=== PATIENT | female | born 1945 | race Caucasian/White ===

== ENCOUNTER 2024-11-02 20:17 | Observation (INO) | payer MEDICARE, SELFPAY ==
--- NOTE | ~2024-11-02 | XR_ITS ---
EXAMINATION: XR abdomen/kub 1V DATE: 11/06/2024 13:27 INDICATION: Abdominal discomfort TECHNIQUE: A supine view of the abdomen on 2 radiographs was obtained. COMPARISON: None. FINDINGS: Multiple gas-filled but nondilated loops of bowel throughout the abdomen and pelvis in a nonspecific nonobstructive bowel gas pattern. Mild linear discoid atelectasis at the bilateral lung bases. Lumbar dextroscoliosis with severe spondylosis. L2 compression fracture. IMPRESSION: 1. Nonspecific nonobstructive bowel gas pattern. Reviewed, dictated and finalized at location A. RT FREIGHT MANAGER
--- NOTE | ~2024-11-02 | CT_ITS ---
EXAMINATION: CT brain wo con DATE: 11/02/2024 23:47 INDICATION: Syncope. TECHNIQUE: Computed tomography (CT) of the head was performed without intravenous contrast. The mA wa s adjusted according to patient size. Iterative reconstruction technique was employed. The dose-lengt h product was 529.67 mGy-cm. COMPARISON: None FINDINGS: There are scattered areas of low attenuation in the cerebral white matter. There is no intr acranial hemorrhage, acute infarction, or abnormal intracranial mass lesion. The ventricles are js l in size. There is mild mucosal thickening in the paranasal sinuses. The mastoid air cells are js l. IMPRESSION: 1. Moderate nonspecific cerebral white matter disease, which likely represents chronic small vessel i schemic disease. Reviewed, dictated and finalized at location A. ITION THERAPIST IMPRESSION: 1. Moderate nonspecific cerebral white matter disease, which likely represents chronic small vessel ischemic disease.
--- NOTE | ~2024-11-02 | XR_ITS ---
EXAMINATION: XR chest 1V portable DATE: 11/02/2024 22:54 INDICATION: Syncope. TECHNIQUE: A single frontal view of the chest was obtained. COMPARISON: Chest 2 views 03/22/2009 FINDINGS: There is no pneumonia, pleural effusion, or pneumothorax. The heart size is normal. There i s an old healed fracture of right fourth rib. IMPRESSION: 1. No acute cardiopulmonary disease. Reviewed, dictated and finalized at location A. ING PROCESS WORKER
[2024-11-02 20:32] VITALS: BP 104/55; PULSE 60; RESP 17; TEMP 36.5; O2SAT 94
--- NOTE | 2024-11-02 20:34 | ECG_ITS ---
Test Date: 2024-11-02 20:46:05 Measurements Intervals [place] Rate: 56 P: 85 SC: 335 QRS: 17 QRSD: 82 T: 29 QT: 437 QTc: 422 Interpretive Statements SINUS BRADYCARDIA NONSPECIFIC T-WAVE ABNORMALITY ABNORMAL ECG Electronically Signed On 11-03-2024 08:40:22 HOUSE BUILDER by Salazar Irving M.D.
[2024-11-02 22:32] VITALS: BP 114/73; PULSE 64; RESP 14; O2SAT 100
[2024-11-02 22:34] VITALS: BP 109/81; BP 122/69; BP 130/67; PULSE 68; PULSE 69; PULSE 73; RESP 16; RESP 20; TEMP 36.3; O2SAT 96; O2SAT 98; O2SAT 99
[2024-11-02 22:46] VITALS: BP 113/77; PULSE 64; RESP 20; O2SAT 97
[2024-11-02 22:55] LABS: Basophils Percent Auto 0.3 % (0.2-1.2); Eosinophils Percent Auto 0.2 % (0-4.4); Hematocrit 40.9 % (37.0-47.0); Hemoglobin 13.3 g/dL (12.0-15.0); Immature Granulocyte Absolute 0.08 K/mm3 (0.00-0.031); Immature Granulocyte Percent A 0.6 % (0-0.5); Lymphocytes Absolute Auto 0.78 K/mm3 (0.9-3.2); Mean Corpuscular HGB Conc 32.5 g/dl (32-36); Mean Corpuscular Hemoglobin 29.1 pg (26-34); Mean Corpuscular Volume 89.5 fl (80-100); Mean Platelet Volume 9.2 fl (7.4-10.4); Monocytes Absolute Auto 0.8 K/mm3 (0.1-0.6); Neutrophils Absolute Auto 11.4 K/mm3 (1.3-6.7); Neutrophils Percent Auto 86.9 % (45.5-73.1); Platelet Count Result 306 k/mm3 (150-375); Red Blood Count 4.57 M/mm3 (4.2-5.4); Red Cell Distribution Width 15.7 % (11.5-14.5); White Blood Count 13.1 K/mm3 (4.5-10.0)
[2024-11-02 23:01] VITALS: BP 120/47; PULSE 63; RESP 16; O2SAT 97
--- NOTE | 2024-11-02 23:22 | ED.GENADULT ---
HPI - General Adult General Chief complaint: Syncope Stated complaint: syncope Time Seen by Provider: 11/02/24 22:46 History of Present Illness HPI narrative: Patient 79-year-old female who presents emergency department with chief complaint of syncopal episode. Per the family patient was at the intermediate sitting down states that she needed to go the bathroom she then became very ashen reports that her face scratched up her eyes rolled back in her head the patient has history of dementia and is at baseline confused the family reports that currently she is at her baseline. Related Data Home Medications ?Medication ?Instructions ?Recorded ?Confirmed ?Last Taken ?Type No Home Medications 08/17/24 09/07/24 Unknown History Allergies Allergy/AdvReac Type Severity Reaction Status Date / Time codeine Allergy Unknown Verified 09/09/11 12:55 Review of Systems Review of Systems: A 10 system review of systems was completed on the patient and is negative except for what is stated in the HPI. Nursing and ancillary documentation was reviewed. [facility] Family History Family History Sibling Family history of diabetes mellitus in first degree relative Social History Social History Smoking status: Former smoker Alcohol intake: current Exam Narrative: GENERAL: Well-appearing, well-nourished, and in no acute distress. HEAD: Normocephalic, atraumatic. EYES: PERRLA and EOMI. ENT: Nares clear, no rhinorrhea or epistaxis. Mucous membranes moist. NECK: Supple. CHEST: Clear to auscultation. No respiratory distress. HEART: Regular rate and rhythm. No murmur heard. Normal peripheral pulses. ABDOMEN: Soft, nontender, nondistended, normal active bowel sounds. EXTREMITIES: Normal range of motion. No edema. SKIN: Warm, dry, no rash. NEURO: No focal deficits. Alert and oriented to baseline, pleasantly confused. PSYCH: Normal mood and affect. Course Vital Signs Vital signs: Vital Signs Temperature 36.5 C 11/02/24 20:32 Pulse Rate 60 11/02/24 20:32 Respiratory Rate 17 11/02/24 20:32 Blood Pressure 104/55 L 11/02/24 20:32 Pulse Oximetry 94 11/02/24 20:32 Oxygen Delivery Room Air 11/02/24 20:32 Temperature 36.5 C 11/02/24 20:32 Pulse Rate 63 11/02/24 23:01 Respiratory Rate 16 11/02/24 23:01 Blood Pressure 120/47 L 11/02/24 23:01 Pulse Oximetry 97 11/02/24 23:01 Oxygen Delivery Room Air 11/02/24 20:32 Medical Decision Making MDM Narrative Medical decision making narrative: Differential diagnosis includes dysrhythmia, electrolyte abnormality, dehydration, UTI, COVID, flu, RSV, pneumonia Chest x-ray showed no focal infiltrate CT head showed no acute abnormality EKG showed no dysrhythmia the patient has been observed on the monitor and so far has had no dysrhythmias in the emergency department. There was an episode that had artifact that was not congruent with pulse ox. The case was discussed with the hospitalist the patient will be admitted for observation. Vital Signs Vital Signs: Vital Signs Temperature 36.5 C 11/02/24 20:32 Pulse Rate 60 11/02/24 20:32 Respiratory Rate 17 11/02/24 20:32 Blood Pressure 104/55 L 11/02/24 20:32 Pulse Oximetry 94 11/02/24 20:32 Oxygen Delivery Room Air 11/02/24 20:32 Temperature 36.5 C 11/02/24 20:32 Pulse Rate 63 11/02/24 23:01 Respiratory Rate 16 11/02/24 23:01 Blood Pressure 120/47 L 11/02/24 23:01 Pulse Oximetry 97 11/02/24 23:01 Oxygen Delivery Room Air 11/02/24 20:32 Lab Data 11/02/24 22:50 11/03/24 00:03 Labs: Lab Results 11/02/24 11/03/24 Range/Units 22:50 00:03 WBC 13.1 H (4.5-10.0) K/mm3 RBC 4.57 (4.2-5.4) M/mm3 Hgb 13.3 (12.0-15.0) g/dL Hct 40.9 (37.0-47.0) % MCV 89.5 (80-100) fl MCH 29.1 (26-34) pg MCHC 32.5 (32-36) g/dl RDW 15.7 H (11.5-14.5) % Plt Count 306 (150-375) k/mm3 MPV 9.2 (7.4-10.4) fl Immature Gran % (Auto) 0.6 H (0-0.5) % Neut % (Auto) 86.9 H (45.5-73.1) % Lymph % (Auto) 6.0 L (18.3-44.2) % Leake % (Auto) 6.0 (2.6-8.5) % Eos % (Auto) 0.2 (0-4.4) % Baso % (Auto) 0.3 (0.2-1.2) % Lymph # (Auto) 0.78 L (0.9-3.2) K/mm3 Leake # (Auto) 0.8 H (0.1-0.6) K/mm3 Eos # (Auto) 0.0 (0-0.3) K/mm3 Baso # (Auto) 0.0 (0.0-0.1) K/mm3 Abs Immat Gran (auto) 0.08 H (0.00-0.031) K/mm3 Absolute Neuts (auto) 11.4 H (1.3-6.7) K/mm3 Absolute Nucleated RBC 0.000 (0.0-0.012) K/mm3 Nucleated RBC % 0.0 (0.0-0.2) % PT 13.9 (11.1-14.7) Seconds INR 1.0 APTT 26.8 (22.3-36.8) Seconds Sodium 136 L (137-145) mmol/L Potassium 4.1 (3.4-5.0) mmol/L Chloride 106 (98-107) mmol/L Carbon Dioxide 27 (22-30) mmol/L Anion Gap 3 L (4-12) mmol/L BUN 15 (7-17) mg/dL Creatinine 0.80 (0.7-1.0) mg/dL Estim Creat Clear Calc Not Reportable Estimated GFR > 60 (59 - ) Glucose 123 H (65-110) mg/dL Lactic Acid 1.1 (0.7-2.0) mmol/L Calcium 9.5 (8.4-10.2) mg/dL Magnesium 2.3 (1.6-2.3) mg/dL Total Bilirubin 0.5 (0.2-1.3) mg/dL AST 28 (14-36) U/L ALT 15 (6-35) U/L Alkaline Phosphatase 98 (38-126) U/L Troponin I < 0.012 (0.000-0.034) ng/mL NT-Pro-B Natriuret Pep 46 (19.9-100) pg/mL Total Protein 8.0 (6.3-8.2) g/dL Albumin 4.1 (3.5-5.1) g/dL Procalcitonin 0.0 ng/mL Influenza A (RT-PCR) Negative (Negative) Influenza B (RT-PCR) Negative (Negative) RSV (RT-PCR) Negative (Negative) SARS-CoV-2 RNA (RT-PCR) Negative (Negative) Discharge Plan Discharge Clinical Impression: Syncope Patient Disposition: Still a Patient Condition: Stable Patient Language: Luxembourgish Prescriptions: No Action No Home Medications Follow-up/Referrals: PHYSICIAN NOT ON STAFF,NONSTAFF [Primary Care Provider] - Time of Disposition: 01:37
[2024-11-03] VITALS (8 sets, daily range): BP systolic 118–135; BP diastolic 46–76; PULSE 64–73; RESP 12–20; TEMP 36.5–36.7; O2SAT 96–100; BMI 27.3
--- NOTE | 2024-11-03 | ECHO_ITS ---
Patient Info Name: Thalia Hager Age: 79 years : 1945 Gender: Female Ht: 62 in Wt: 149 lbs BSA: 1.74 m2 HR: 67 bpm BP: 134 / 58 mmHg Technical Quality: Fair Exam Date: 11/03/2024 11:39 AM Exam Location: Echo Lab Patient Status: Inpatient Admit Date: 11/03/2024 Staff Ordering Physician: Amparo Burton Brim Cutter: Rory Momin RDCS Attending Provider: Amparo Burton Referring Physician: Micheal SALCIDO; Exam Type: CA echo doppler color flow Study Info Indications R55 - Syncope and collapse Complete two-dimensional, color flow and Doppler transthoracic echocardiogram is performed. Summary 1. Complete two-dimensional, color flow and Doppler transthoracic echocardiogram is performed. 2. The left ventricle is normal in size and systolic function. The left ventricular ejection fraction is visually estimated to be 60-65%. 3. The right ventricle is normal in size and systolic function. Left Ventricle The left ventricle is normal in size and systolic function. The left ventricular ejection fraction is visually estimated to be 60-65%. Right Ventricle The right ventricle is normal in size and systolic function. Left Atria The left atrium is normal size. Atrial Septum There appears to be lipomatous hypertrophy of the atrial septum. Aortic Valve The aortic valve is trileaflet and opens well. There is no aortic regurgitation. Pulmonic Valve The pulmonic valve is grossly normal. There is no color Doppler evidence of pulmonic valve regurgitation this study. Mitral Valve The mitral valve is normal. Tricuspid Valve The tricuspid valve is normal. There is trace tricuspid regurgitation. Pericardium/Pleural Pericardium is normal in appearance with no evidence for significant pericardial effusion. Inferior Vena Cava Normal inferior vena cava with >50% collapse upon inspiration consistent with normal right atrial pressure, 3 mmHg. Aorta The aortic root at the level of the sinus of Valsalva measures 2.7cm in diameter. Left Ventricular Outflow Tract Name Value Normal LVOT Doppler LVOT Peak Gradient 6 mmHg LVOT Mean Gradient 3 mmHg LVOT VTI 25 cm LVOT VTI/AV VTI Ratio 0.8 Pulmonic Valve Name Value Normal PV Doppler PV Peak Gradient 4 mmHg Mitral Valve Name Value Normal MV Doppler MV Decel Collier 460 cm/s2 MV PHT 52 ms MV Area (PHT) 4.2 cm2 4.0-5.0 MV Diastolic Function MV E Peak Velocity 83 cm/s MV A Peak Velocity 99 cm/s MV E/A 0.8 MV Decel Time 180 ms Tricuspid Valve Name Value Normal TV Regurgitation Doppler TR Peak Velocity 253 cm/s TR Peak Gradient 26 mmHg Estimated PAP/RSVP RA Pressure 3 mmHg <=5 PA Systolic Pressure 29 mmHg <36 RV Systolic Pressure 29 mmHg <36 Aorta Name Value Normal Ascending Aorta Ao Root Diameter (MM) 2.0 cm Ao Root Diam Index (MM) 1.2 cm/m2 Aortic Valve Name Value Normal AV Doppler AV Peak Velocity 167 cm/s AV Peak Gradient 11 mmHg AV Mean Gradient 5 mmHg AV VTI 32 cm Ventricles Name Value Normal LV Dimensions 2D/MM IVS Diastolic Thickness (2D) 0.6 cm 0.6-1.0 IVS Diastole Thickness (MM) 0.8 cm 0.6-0.9 LVID Diastole (2D) 4.7 cm 3.8-5.2 LVID Diastole (MM) 5.6 cm 3.8-5.2 LVIW Diastolic Thickness (2D) 0.9 cm 0.6-0.9 LVIW Diastolic Thickness (MM) 0.8 cm 0.6-0.9 LVID Systole (2D) 3.2 cm 2.2-3.5 LVID Systole (MM) 3.9 cm 2.2-3.5 LV Mass (2D Cubed) 117.65 g 67.00-162.00 LV Mass Index (2D Cubed) 68 g/m2 43-95 Relative Wall Thickness (2D) 0.38 LV Mass (MM Cubed) 168.96 g 67.00-162.00 LV Mass Index (MM Cubed) 97 g/m2 43-95 Relative Wall Thickness (MM) 0.29 LV Fractional Shortening/Ejection Fraction 2D/MM LV Fractional Shortening (2D) 32 % 27-45 LV Fractional Shortening (MM) 31 % 27-45 LV EF (MM Teicholz) 58 % 54-74 LV EF (2D Teicholz) 60 % 54-74 LV Diastolic Volume (4C MOD) 51 ml LV EF (4C MOD) 78 % LV Diastolic Volume (2C MOD) 31 ml LV EF (2C MOD) 72 % LV Diastolic Volume (BP MOD) 41 ml 46-106 LV Diastolic Volume Index (BP MOD) 24 ml/m2 29-61 LV Systolic Volume (BP MOD) 10 ml 14-42 LV Systolic Volume Index (BP MOD) 6 ml/m2 8-24 LV EF (BP MOD) 75 % 54-74 LV Diastolic Length (4C) 7.1 cm LV Systolic Length (4C) 5.7 cm LV Stroke Volume (4C MOD) 39 ml Atria Name Value Normal LA Dimensions LA Dimension (MM) 4.2 cm 2.7-3.8 LA Volume (4C A-L) 40 ml LA Volume (BP A-L) 36 ml RA Dimensions RA Area (4C) 9.3 cm2 <=18.0 Report Signatures
[2024-11-03 00:18] LABS: Magnesium 2.3 mg/dL (1.6-2.3)
[2024-11-03 00:19] LABS: Alanine Aminotransferase 15 U/L (6-35); Albumin Level 4.1 g/dL (3.5-5.1); Alkaline Phosphatase 98 U/L (38-126); Anion Gap 3 mmol/L (4-12); Aspartate Amino Transferase 28 U/L (14-36); Bilirubin,Total 0.5 mg/dL (0.2-1.3); Blood Urea Nitrogen 15 mg/dL (7-17); Calcium 9.5 mg/dL (8.4-10.2); Carbon Dioxide 27 mmol/L (22-30); Chloride 106 mmol/L (98-107); Estimated Glomerular Filt Rate > 60; Glucose 123 mg/dL (65-110); Lactic Acid Reflex 1.1 mmol/L (0.7-2.0); Potassium 4.1 mmol/L (3.4-5.0); Sodium 136 mmol/L (137-145)
[2024-11-03 00:30] LABS: NT Pro B Type Natriuretic Pept 46 pg/mL (19.9-100); Troponin I < 0.012 ng/mL (0.000-0.034)
[2024-11-03 00:31] LABS: Prothrombin Time 13.9 Seconds (11.1-14.7)
[2024-11-03 00:33] LABS: Partial Thromboplastin Time 26.8 Seconds (22.3-36.8)
[2024-11-03 00:56] LABS: Influenza A QL RT-PCR Negative (Negative); Influenza B QL RT-PCR Negative (Negative); RSV RNA, RT-PCR Negative (Negative); SARS-CoV-2 RNA PCR Negative (Negative)
[2024-11-03] MEDS: SODIUM CHLORIDE 0.9% IV 1,000 ML 999 ML IV CONT ×2 (01:11)
--- NOTE | 2024-11-03 02:31 | ADMGEN ---
This patient, Thalia Hager, was admitted to [facility] Surg Room 324-02. Patient/family oriented to hospital policies and general routines including ID bracelet, bed and alarms, visiting hours, pain management, procedures, bathroom and other care routines, personal items, smoking policy, room service/diet, and visiting hours. Information on how to activate the Rapid Response Team has been discussed. Patient/Family are encouraged to report perceived risks to care and to ask questions if they do not understand what they are told or what they should do.
[2024-11-03 03:47] LABS: Troponin I < 0.012 ng/mL (0.000-0.034)
[2024-11-03 05:34] LABS: Add Urine Microscopic? YES; Appearance Urine Cloudy (Clear); Bacteria Urine 4+ /hpf; Bilirubin Urine Negative (Negative); Blood Urine Negative (Negative); Color Urine Yellow (Yellow); Glucose Urine UA Negative (Negative); Ketones Urine Negative (Negative); Leukocyte Esterase Ur 3+ LEU/UL (Negative); Need Manual Microscopic Reviewed; Nitrate Urine Positive (Negative); Non Pathogenic Casts 0-2; Protein Urine Negative (Negative); Squamous Epithelial Cell Urine None Seen /hpf (Few); WBC Urine 51-100 /hpf (0-3); pH Urine 5.5 (5.0-9.0)
[2024-11-03] MEDS: LORATADINE 10 MG TABLET PO (09:38)
[2024-11-03] MEDS: CYANOCOBALAMIN 1,000 MCG TABLET 1000 MCG PO (09:38)
[2024-11-03] MEDS: CHOLECALCIFEROL 1,000 UNITS TABLET 1000 UNITS PO (09:38)
[2024-11-03] MEDS: PANTOPRAZOLE 40 MG TABLET PO (09:38)
[2024-11-03] MEDS: CALCIUM/VITAMIN D 500 MG/5 MCG (200 I.U.) TABLET PO ×2 (09:38→16:44)
[2024-11-03] MEDS: TRIAMCINOLONE ACET 0.1% CREAM 15 GM TUBE 1 APPLIC TOPICAL ×3 (09:39→16:44)
[2024-11-03] MEDS: CLOBETASOL PROPIONATE 0.05% CREAM 15 GM 1 APPLIC TOPICAL ×2 (09:39→16:45)
[2024-11-03] MEDS: hydrOXYzine HCL 25 MG TABLET PO ×2 (09:40→16:44)
--- NOTE | 2024-11-03 09:40 | P.HP_ITS ---
H&P: HPI History of Present Illness Date/Time: 11/03/24 09:40 Chief Complaint: Syncope Narrative: This pleasantly confused female pt who resides at a custodial and has a PMH of Dementia with baseline confusion, Vitamin D Deficiency, Anxiety, B12 Deficiency, GERD and Psoriasis was brought to the ER yesterday with complaints of having a syncopal episode. It was stated that she was sitting already, stated she needed to go to the bathroom and then had a brief moment of syncope. Pt herself is a poor historian currently oriented to self only. It is noted in the documentation from ER that she had returned to her baseline by the time she had arrived to ER, but had no recollection of the episode of syncope. Workup in the ER was significant for findings of UTI with + Nitrates, 3+ leukocyte esterase, 51-100 WBCs, and 4+ Bacteria. She had unremarkable scans of head and unremarkable xray of chest. There are no noted historical results of UTI for review. She is started on Rocephin 1G IVPB daily pending current culture results and will be continued to follow by hospitalist staff. Review of Systems Review of Systems: ROS unobtainable: Yes unobtainable due to mental status (Oriented to self only.) [facility] Past Medical History Medical History (Updated 11/03/24 @ 09:55 by BHASKAR Mota) Urinary tract infection Family History Family History Sibling Family history of diabetes mellitus in first degree relative Mother Dementia Father Heart disease Sibling Cerebrovascular accident Social History Social History Smoking packs per day: 1 Smoking cigarettes per day: 20.0 Years smoked: 50 Smoking pack-years: 50.00 Smoking status: Former smoker Smoking end date: 11/09/11 Alcohol intake: never Substance use: never Do You Feel Safe in your Home?: Yes Lack of Transportation: No Lack of Food: Never True Current Housing: I Have Housing Concerned About Future Housing: No Difficulty Paying Gas/Electric Bills: No Difficulty Paying for Meds: No Currently Unemployed: No Education: High School Diploma/GED Difficulty w/ Childcare or Family Care: No Spiritual care concerns: No Meds Home Medications and Allergies Home Medications ?Medication ?Instructions ?Recorded ?Confirmed ?Type acetaminophen 500 mg capsule 500 mg PO Q6H PRN pain 11/03/24 11/03/24 History calcium 600 mg (as carbonate)-vit 1 tablet PO BID 11/03/24 11/03/24 History D3 20 mcg (800 unit) chewable tablet (Caltrate plus D) cholecalciferol (vitamin D3) 25 25 mcg PO DAILY 11/03/24 11/03/24 History mcg (1,000 unit) capsule citalopram 10 mg tablet 10 mg PO .qd other recurrent 11/03/24 11/03/24 History depressive disorders clobetasol 0.05 % topical cream 1 applic topical BID RLE psoriasis 11/03/24 11/03/24 History cyanocobalamin (vitamin B-12) 1,000 mcg PO DAILY 11/03/24 11/03/24 History 1,000 mcg tablet,extended release erythromycin 5 mg/gram (0.5 %) eye 1 applic EACH EYE DAILY PRN pain 11/03/24 11/03/24 History ointment hydroxyzine HCl 25 mg tablet 25 mg PO BID 11/03/24 11/03/24 History loperamide 2 mg tablet 2 mg PO QID PRN GERD 11/03/24 11/03/24 History (Anti-Diarrheal (loperamide)) loratadine 10 mg tablet (Allergy 10 mg PO DAILY psoriasis 11/03/24 11/03/24 History Relief (loratadine)) omeprazole 20 mg capsule,delayed 20 mg PO DAILY 11/03/24 11/03/24 History release secukinumab 300 mg/2 mL (150 150 mg subcut ONCE psoriasis 11/03/24 11/03/24 History mg/mL) subcutaneous pen injector (Cosentyx UnoReady Pen) sennosides 8.6 mg tablet 8.6 mg PO DAILY PRN constipation 11/03/24 11/03/24 History triamcinolone acetonide 0.1 % 1 applic topical TID RLE psoriasis 11/03/24 11/03/24 History topical cream Allergies Allergy/AdvReac Type Severity Reaction Status Date / Time codeine Allergy Unknown Verified 09/09/11 12:55 Vital Signs Vital Signs - 24 hr 11/02/24 20:32 11/02/24 22:32 11/02/24 22:34 Temperature 97.7 F 97.4 F L Pulse Rate 60 64 68 Respiratory Rate 17 14 16 Blood Pressure 104/55 L 114/73 122/69 Pulse Oximetry 94 100 99 Oxygen Delivery Room Air 11/02/24 22:34 11/02/24 22:34 11/02/24 22:46 Temperature 97.4 F L 97.4 F L Pulse Rate 69 73 64 Respiratory Rate 20 20 20 Blood Pressure 130/67 109/81 113/77 Pulse Oximetry 98 96 97 Oxygen Delivery 11/02/24 23:01 11/03/24 02:17 11/03/24 05:03 Temperature Pulse Rate 63 72 65 Respiratory Rate 16 15 Blood Pressure 120/47 L 118/46 L Pulse Oximetry 97 98 Oxygen Delivery 11/03/24 05:51 Temperature 97.9 F Pulse Rate 67 Respiratory Rate 16 Blood Pressure 134/58 L Pulse Oximetry 100 Oxygen Delivery Exam Const: General: comfortable and no acute distress Other: Elderly female pt who is currently confused and alert and oriented to self only. HENMT: Face/Nose/Sinus: Normal nares present Mouth: Yes moist mucous membranes Other: atraumatic and normocephalic head Eyes: General: appearance normal, both eyes and all related structures Neck: Neck: supple and no JVD Resp: Effort & Inspection: normal respiratory effort Auscultation: clear to auscultation bilaterally Cardio: Rate: regular rate Rhythm: regular rhythm Heart sounds: no gallops, no murmurs and no rubs GI: Inspection: non-distended GI Palp: Yes Soft to palpation, No Firmness to palpation present (GI), Yes Tenderness to palpation present (GI) (Suprapubic tenderness present on palpation.) and No Guarding due to palpation present (GI) Skin: General skin exam: normal color and no rashes or lesions noted Lesions: no lesions noted Rashes: no rashes noted Wounds: no wounds Neuro: Speech: normal speech Extrem: Other: Grossly intact with noted FROM of all extremities without any edema. Psych: Affect: normal affect Other: Confused H&P: Results Labs Labs: Short CBC 11/02/24 Range/Units 22:50 WBC 13.1 H (4.5-10.0) K/mm3 Hgb 13.3 (12.0-15.0) g/dL Hct 40.9 (37.0-47.0) % Plt Count 306 (150-375) k/mm3 BMP 11/03/24 00:03 Sodium 136 L Potassium 4.1 Chloride 106 Carbon Dioxide 27 BUN 15 Creatinine 0.80 Glucose 123 H Calcium 9.5 Cardiac Enzymes 11/03/24 11/03/24 Range/Units 00:03 03:18 Troponin I < 0.012 < 0.012 (0.000-0.034) ng/mL Liver Function 11/03/24 Range/Units 00:03 Total Bilirubin 0.5 (0.2-1.3) mg/dL AST 28 (14-36) U/L ALT 15 (6-35) U/L Alkaline Phosphatase 98 (38-126) U/L Albumin 4.1 (3.5-5.1) g/dL Urine 11/03/24 Range/Units 03:39 Urine Color Yellow (Yellow) Urine Appearance Cloudy H (Clear) Urine pH 5.5 (5.0-9.0) Ur Specific [place] 1.010 (1.001-1.035) Urine Protein Negative (Negative) mg/dL Urine Glucose (UA) Negative (Negative) mg/dL Assessment and Plan Assessment and plan (1) Syncope: Code(s): R55 - Syncope and collapse Status: Acute Assessment and Plan: * Etiology unknown. Suspect either Vasovagal as pt was sitting and felt the urge to go to the bathroom when it occurred vs. arrhythmia, vs. infection as she has a current UTI. * CT head normal. * Pt is confused at baseline secondary to her dementia. * EKG = A-paced 56 bpm * ECHO ordered. * Continue Telemetry * Consider MRI if recurs or if no other reasonable cause. * No gross motor deficits on exam. * Fall precautions (2) Urinary tract infection: Code(s): N39.0 - Urinary tract infection, site not specified Status: Acute Assessment and Plan: * Rocephin 1G IVPB daily pending Cx. * Urine culture pending. * No historical data for comparison of previous UTI's. (3) Alzheimer dementia with anxiety: Code(s): G30.9 - Alzheimer's disease, unspecified; F02.84 - Dementia in other diseases classified elsewhere, unspecified severity, with anxiety Status: Chronic Assessment and Plan: * Chronic, noted to be pleasantly confused. * Supportive care with attempt to re-orient and provide for safety. (4) Plaque psoriasis: Code(s): L40.0 - Psoriasis vulgaris Status: Chronic Assessment and Plan: * Continue Triamcinolone cream as ordered * Continue hydroxyzine as needed * Continue Cosentyx on home dosing schedule. (5) THU (generalized anxiety disorder): Code(s): F41.1 - Generalized anxiety disorder Status: Chronic Assessment and Plan: * Continue Citalopram per home dose. Quality VTE Prophylaxis VTE prophylaxis: mechanical ordered Hospitalist MIPS Advance Care Plan I have confirmed that the patient's Advanced Care Plan is present, code status is documented, or surrogate decision maker is listed in patient medical record.: Yes The patient's Advanced Care plan is not present because:: Patient doesn't want to name surrogate or provider advance care plan Medication Reconciliation I have utilized all available resources to obtain, update and review the patients current medications (includes all prescriptions, OTC, herbals, cannabis, and nutritional supplements).: Yes The patient is not eligible for med reconciliation; the patient is in a emergent medical situation where delaying treatment would jeopardize the patients health.: No
[2024-11-03] MEDS: CITALOPRAM HYDROBROMIDE 10 MG TABLET PO (09:41)
--- NOTE | 2024-11-03 14:54 | PC.NURSE ---
RN spoke with Laquita at [facility] to provide an update.
[2024-11-04] VITALS (9 sets, daily range): BP systolic 94–112; BP diastolic 56–79; PULSE 61–85; RESP 12–20; TEMP 36.2–36.9; O2SAT 96–98
[2024-11-04 07:13] LABS: Basophils Percent Auto 0.4 % (0.2-1.2); Eosinophils Absolute Auto 0.2 K/mm3 (0-0.3); Eosinophils Percent Auto 2.9 % (0-4.4); Hemoglobin 11.9 g/dL (12.0-15.0); Immature Granulocyte Absolute 0.04 K/mm3 (0.00-0.031); Immature Granulocyte Percent A 0.5 % (0-0.5); Lymphocytes Absolute Auto 1.43 K/mm3 (0.9-3.2); Lymphocytes Percent Auto 17.5 % (18.3-44.2); Mean Corpuscular HGB Conc 32.2 g/dl (32-36); Mean Platelet Volume 9.3 fl (7.4-10.4); Monocytes Absolute Auto 0.8 K/mm3 (0.1-0.6); Monocytes Percent Auto 9.6 % (2.6-8.5); Neutrophils Absolute Auto 5.7 K/mm3 (1.3-6.7); Neutrophils Percent Auto 69.1 % (45.5-73.1); Platelet Count Result 323 k/mm3 (150-375); Red Blood Count 4.11 M/mm3 (4.2-5.4); Red Cell Distribution Width 15.8 % (11.5-14.5); White Blood Count 8.2 K/mm3 (4.5-10.0)
--- NOTE | 2024-11-04 07:20 | P.PNIM_ITS ---
Progress Note: A&P Assessment and Plan (1) Syncope: Code(s): R55 - Syncope and collapse Status: Acute Assessment and Plan: 11/04/24: No further syncope. Likely secondary to current infection vs/ vasovagal. No lightheadedness. No focal neurological deficits. Will check orthostatics. Echo has normal EF w/o significant valvular concerns. 11/03/24: * Etiology unknown. Suspect either Vasovagal as pt was sitting and felt the urge to go to the bathroom when it occurred vs. arrhythmia, vs. infection as she has a current UTI. * CT head normal. * Pt is confused at baseline secondary to her dementia. * EKG = A-paced 56 bpm * ECHO ordered. * Continue Telemetry * Consider MRI if recurs or if no other reasonable cause. * No gross motor deficits on exam. * Fall precautions (2) Urinary tract infection: Code(s): N39.0 - Urinary tract infection, site not specified Status: Acute Assessment and Plan: 11/04/24: Patient denies dysuria at this time, is currently on ceftriaxone (day 2) which will cont. Cultures are pending this am and have not resulted with speciation or sensitivities. Once available, likely able to dc home. Labs are stable with wbc count from 13k down to 8k. Afebrile. 11/03/24: * Rocephin 1G IVPB daily pending Cx. * Urine culture pending. * No historical data for comparison of previous UTI's. (3) Alzheimer dementia with anxiety: Code(s): G30.9 - Alzheimer's disease, unspecified; F02.84 - Dementia in other diseases classified elsewhere, unspecified severity, with anxiety Status: Chronic Assessment and Plan: 11/04/24: Mildly confused but appropriate and conversational. 11/03/24: * Chronic, noted to be pleasantly confused. * Supportive care with attempt to re-orient and provide for safety. (4) Plaque psoriasis: Code(s): L40.0 - Psoriasis vulgaris Status: Chronic Assessment and Plan: 11/04/24: Noted region to the right wrist, cont. with kenalog cream and home regimen. 11/03/24: * Continue Triamcinolone cream as ordered * Continue hydroxyzine as needed * Continue Cosentyx on home dosing schedule. (5) THU (generalized anxiety disorder): Code(s): F41.1 - Generalized anxiety disorder Status: Chronic Assessment and Plan: 11/04/24: Denies symptomology at this time. 11/03/24: * Continue Citalopram per home dose. Plan Thalia Hager is an 79 year old female presenting with a possible syncopal episode that is currently undifferentiated, although likely vasovagal vs secondary to current infection. Patient has a urine cx pending w/o speciation/sensitivities as of yet this am. Once results available, likely able to discharge back to facility. Time Spent With Patient Time with patient: 25 - 35 minutes Subjective Date/time seen: 11/04/24 07:20 Interval history: Thalia denies complaints or concerns today. Has a fair appetite and is tolerating diet. Review of Systems Review of Systems: All systems reviewed & are unremarkable except as noted in HPI and below Exam Narrative: GENERAL APPEARANCE: Appears to be in no acute distress. HEAD: normocephalic atraumatic EYES: PERRL, EOMI. Vision grossly intact. ENT: Hearing grossly intact, no nasal discharge NECK: Neck supple, trachea midline. CARDIAC: Normal S1/S2. Rhythm is regular. No murmurs, rubs, or gallops. No cyanosis or pallor. Extremities are warm and well perfused. LUNGS: Clear to auscultation without rales, rhonchi, wheezing or diminished breath sounds. Respirations even and unlabored. ABDOMEN: BS positive x 4 quadrants. Soft, nondistended, nontender. No guarding or rebound. MSK: No joint tenderness/swelling, fair strength in all extremities. PERIPHERAL VASCULAR: Peripheral pulses palpable. Normal perfusion, cap refill <2 seconds. No edema. NEURO: Follows commands. No focal deficits. SKIN: [place] without lesions or eruptions. PSYCH: Stable, no paranoia or delusional thinking. Objective Data Vital Signs Vital Signs: Vital Signs - 24 hr 11/03/24 08:00 11/03/24 08:03 11/03/24 14:00 Temperature 98.0 F Pulse Rate 64 64 70 Respiratory Rate 16 20 Blood Pressure 135/65 Pulse Oximetry 100 100 Oxygen Delivery Room Air 11/03/24 16:00 11/03/24 19:10 11/03/24 20:00 Temperature 97.7 F Pulse Rate 72 73 Respiratory Rate 12 Blood Pressure 133/76 Pulse Oximetry 96 Oxygen Delivery Room Air 11/04/24 06:00 Temperature 97.2 F L Pulse Rate 61 Respiratory Rate 12 Blood Pressure 110/74 Pulse Oximetry 96 Oxygen Delivery Intake/Output Intake/Output: Intake & Output 11/01/24 11/02/24 11/03/24 11/04/24 23:59 23:59 23:59 23:59 Intake Total 850 50 Balance 850 50 Meds/Results Medications: Active Medications Generic Name Dose Route Start Last Admin Trade Name Freq PRN Reason Stop Dose Admin Acetaminophen 500 mg 11/03/24 07:18 Acetaminophen 500 Mg Tablet PO Q6H PRN pain Calcium Carbonate 500 mg 11/03/24 09:00 11/03/24 16:44 Calcium/Vitamin D 500 Mg/5 Mcg (200 I.U.) Tablet PO 500 mg BID RADHA Administration Citalopram Hydrobromide 10 mg 11/03/24 09:00 11/03/24 09:41 Citalopram Hydrobromide 10 Mg Tablet PO 10 mg DAILY RADHA Administration Clobetasol Propionate 1 applic 11/03/24 09:00 11/03/24 16:45 Clobetasol Propionate 0.05% Cream 15 Gm TOPICAL 1 applic BID RADHA Administration Cyanocobalamin 1,000 mcg 11/03/24 09:00 11/03/24 09:38 Cyanocobalamin 1,000 Mcg Tablet PO 1,000 mcg DAILY RADHA Administration Erythromycin 1 applic 11/03/24 07:18 Erythromycin Ophth Ointment 1 Gm Tube EACH EYE DAILY PRN pain Hydroxyzine HCl 25 mg 11/03/24 09:00 11/03/24 16:44 Hydroxyzine Hcl 25 Mg Tablet PO 25 mg BID RADHA Administration Ceftriaxone Sodium 1 gm in 50 mls @ 100 mls/hr 11/03/24 08:00 11/03/24 10:36 Rocephin 1 Gm/Ns 50 Ml IVPB Infused Q24H RADHA Infusion Loratadine 10 mg 11/03/24 09:00 11/03/24 09:38 Loratadine 10 Mg Tablet PO 10 mg DAILY RADHA Administration Pantoprazole Sodium 40 mg 11/03/24 09:00 11/03/24 09:38 Pantoprazole 40 Mg Tablet PO 40 mg QAM RADHA Administration Perflutren Lipid Microsphere 0 ml 11/03/24 09:50 Perflutren Lipid Microspheres 1.5 Ml Vial Diluted To 10 Ml Total Volume IV PUSH 11/06/24 09:50 ONCE PRN adequate visualization Protocol Senna 8.6 mg 11/03/24 07:18 Sennosides 8.6 Mg Tablet PO DAILY PRN constipation Triamcinolone Acetonide 1 applic 11/03/24 09:00 11/03/24 16:44 Triamcinolone Acet 0.1% Cream 15 Gm Tube TOPICAL 1 applic TID RADHA Administration Vitamin D 1,000 units 11/03/24 09:00 11/03/24 09:38 Cholecalciferol 1,000 Units Tablet PO 1,000 units DAILY RADHA Administration Radiology Results: ITS Impressions Chest X-Ray 11/03/24 06:19 IMPRESSION: 1. No acute cardiopulmonary disease. Head CT 11/03/24 06:40 IMPRESSION: 1. Moderate nonspecific cerebral white matter disease, which likely represents chronic small vessel ischemic disease. Labs Labs: Laboratory Results - last 24 hr 11/04/24 06:54 WBC 8.2 RBC 4.11 L Hgb 11.9 L Hct 37.0 MCV 90.0 MCH 29.0 MCHC 32.2 RDW 15.8 H Plt Count 323 MPV 9.3 Immature Gran % (Auto) 0.5 Neut % (Auto) 69.1 Lymph % (Auto) 17.5 L [place] % (Auto) 9.6 H Eos % (Auto) 2.9 Baso % (Auto) 0.4 Lymph # (Auto) 1.43 [place] # (Auto) 0.8 H Eos # (Auto) 0.2 Baso # (Auto) 0.0 Abs Immat Gran (auto) 0.04 H Absolute Neuts (auto) 5.7 Absolute Nucleated RBC 0.000 Nucleated RBC % 0.0 Hospitalist MIPS Advance Care Plan I have confirmed that the patient's Advanced Care Plan is present, code status is documented, or surrogate decision maker is listed in patient medical record.: Yes Medication Reconciliation I have utilized all available resources to obtain, update and review the patients current medications (includes all prescriptions, OTC, herbals, cannabis, and nutritional supplements).: Yes
[2024-11-04 07:23] LABS: Alanine Aminotransferase 13 U/L (6-35); Albumin Level 3.8 g/dL (3.5-5.1); Alkaline Phosphatase 79 U/L (38-126); Anion Gap 2 mmol/L (4-12); Aspartate Amino Transferase 24 U/L (14-36); Bilirubin,Total 0.7 mg/dL (0.2-1.3); Blood Urea Nitrogen 10 mg/dL (7-17); Calcium 9.1 mg/dL (8.4-10.2); Carbon Dioxide 27 mmol/L (22-30); Chloride 109 mmol/L (98-107); Estimated CRCL calculation 43 ml/min; Estimated Glomerular Filt Rate > 60; Glucose 97 mg/dL (65-110); Magnesium 2.1 mg/dL (1.6-2.3); Potassium 4.3 mmol/L (3.4-5.0); Sodium 138 mmol/L (137-145)
[2024-11-04] MEDS: TRIAMCINOLONE ACET 0.1% CREAM 15 GM TUBE 1 APPLIC TOPICAL ×3 (09:19→16:45)
[2024-11-04] MEDS: CLOBETASOL PROPIONATE 0.05% CREAM 15 GM 1 APPLIC TOPICAL ×2 (09:19→16:45)
[2024-11-04] MEDS: PANTOPRAZOLE 40 MG TABLET PO (09:25)
[2024-11-04] MEDS: LORATADINE 10 MG TABLET PO (09:25)
[2024-11-04] MEDS: CYANOCOBALAMIN 1,000 MCG TABLET 1000 MCG PO (09:26)
[2024-11-04] MEDS: CITALOPRAM HYDROBROMIDE 10 MG TABLET PO (09:26)
[2024-11-04] MEDS: CALCIUM/VITAMIN D 500 MG/5 MCG (200 I.U.) TABLET PO ×2 (09:26→16:44)
[2024-11-04] MEDS: CHOLECALCIFEROL 1,000 UNITS TABLET 1000 UNITS PO (09:26)
[2024-11-04] MEDS: hydrOXYzine HCL 25 MG TABLET PO ×2 (09:30→16:44)
[2024-11-05] VITALS (8 sets, daily range): BP systolic 100–123; BP diastolic 68–70; PULSE 62–74; RESP 18–20; TEMP 35.7–36.9; O2SAT 95–98
[2024-11-05 06:31] LABS: Hematocrit 34.2 % (37.0-47.0); Hemoglobin 11.2 g/dL (12.0-15.0); Mean Corpuscular HGB Conc 32.7 g/dl (32-36); Mean Corpuscular Hemoglobin 29.2 pg (26-34); Mean Corpuscular Volume 89.1 fl (80-100); Mean Platelet Volume 9.5 fl (7.4-10.4); Platelet Count Result 300 k/mm3 (150-375); Red Blood Count 3.84 M/mm3 (4.2-5.4); Red Cell Distribution Width 15.8 % (11.5-14.5); White Blood Count 7.2 K/mm3 (4.5-10.0)
[2024-11-05 06:43] LABS: Alanine Aminotransferase 12 U/L (6-35); Albumin Level 3.5 g/dL (3.5-5.1); Alkaline Phosphatase 82 U/L (38-126); Anion Gap 2 mmol/L (4-12); Aspartate Amino Transferase 22 U/L (14-36); Bilirubin,Total 0.5 mg/dL (0.2-1.3); Blood Urea Nitrogen 9 mg/dL (7-17); Calcium 8.9 mg/dL (8.4-10.2); Carbon Dioxide 27 mmol/L (22-30); Chloride 109 mmol/L (98-107); Estimated CRCL calculation 49 ml/min; Estimated Glomerular Filt Rate > 60; Glucose 92 mg/dL (65-110); Potassium 3.6 mmol/L (3.4-5.0); Sodium 138 mmol/L (137-145)
--- NOTE | 2024-11-05 09:37 | P.PNIM_ITS ---
Progress Note: A&P Assessment and Plan (1) Syncope: Code(s): R55 - Syncope and collapse Status: Acute (2) Urinary tract infection: Code(s): N39.0 - Urinary tract infection, site not specified Status: Acute (3) Alzheimer dementia with anxiety: Code(s): G30.9 - Alzheimer's disease, unspecified; F02.84 - Dementia in other diseases classified elsewhere, unspecified severity, with anxiety Status: Chronic (4) THU (generalized anxiety disorder): Code(s): F41.1 - Generalized anxiety disorder Status: Chronic (5) Plaque psoriasis: Code(s): L40.0 - Psoriasis vulgaris Status: Chronic (6) Colonic constipation: Code(s): K59.00 - Constipation, unspecified Status: Acute (7) Intrinsic eczema: Code(s): L20.84 - Intrinsic (allergic) eczema Status: Acute Plan (1) Syncope: Code(s): R55 - Syncope and collapse Status: Acute Assessment and Plan: No further syncope. Likely secondary to current infection vs/ vasovagal. No lightheadedness. No focal neurological deficits. Will check orthostatics. Echo has normal EF w/o significant valvular concerns. Telemetry shows no significant arrhythmia (2) Urinary tract infection: Code(s): N39.0 - Urinary tract infection, site not specified Status: Acute Assessment and Plan: 11/05/24: Patient denies dysuria at this time, is currently on ceftriaxone (day 2) which will cont. Cultures are pending this am and have not resulted with speciation or sensitivities. Once available, likely able to dc home. Labs are stable with wbc count from 13k down to 8k. Afebrile. Continue Rocephin 1G IVPB daily pending Cx. Urine culture grows E coli and Klebsiella pneumonia pending susceptibility (3) Alzheimer dementia with anxiety: Code(s): G30.9 - Alzheimer's disease, unspecified; F02.84 - Dementia in other diseases classified elsewhere, unspecified severity, with anxiety Status: Chronic Assessment and Plan: 11/04/24: Mildly confused but appropriate and conversational. 11/03/24: * Chronic, noted to be pleasantly confused. * Supportive care with attempt to re-orient and provide for safety. (4) Plaque psoriasis: Code(s): L40.0 - Psoriasis vulgaris Status: Chronic Assessment and Plan: : Noted region to the right wrist, cont. with kenalog cream and home regimen. . (5) THU (generalized anxiety disorder): Code(s): F41.1 - Generalized anxiety disorder Status: Chronic Assessment and Plan: Stable Continue Citalopram per home dose. Subjective Date/time seen: 11/05/24 09:37 Interval history: Thalia denies complaints or concerns today. Has a fair appetite and is tolerating diet. Exam Narrative: GENERAL APPEARANCE: Appears to be in no acute distress. HEAD: normocephalic atraumatic EYES: PERRL, EOMI. Vision grossly intact. ENT: Hearing grossly intact, no nasal discharge NECK: Neck supple, trachea midline. CARDIAC: Normal S1/S2. Rhythm is regular. No murmurs, rubs, or gallops. No cyanosis or pallor. Extremities are warm and well perfused. LUNGS: Clear to auscultation without rales, rhonchi, wheezing or diminished breath sounds. Respirations even and unlabored. ABDOMEN: BS positive x 4 quadrants. Soft, nondistended, nontender. No guarding or rebound. MSK: No joint tenderness/swelling, fair strength in all extremities. PERIPHERAL VASCULAR: Peripheral pulses palpable. Normal perfusion, cap refill <2 seconds. No edema. NEURO: Follows commands. No focal deficits. SKIN: [place] without lesions or eruptions on the right wrist PSYCH: Stable, no paranoia or delusional thinking. Objective Data Vital Signs Vital Signs: Vital Signs - 24 hr 11/04/24 12:00 11/04/24 14:00 11/04/24 14:00 Temperature 98.1 F Pulse Rate 74 70 Respiratory Rate 16 Blood Pressure 112/65 112/65 Pulse Oximetry 98 Oxygen Delivery 11/04/24 14:05 11/04/24 14:10 11/04/24 16:00 Temperature Pulse Rate 85 Respiratory Rate Blood Pressure 94/79 L 108/56 L Pulse Oximetry Oxygen Delivery 11/04/24 20:00 11/04/24 20:00 11/04/24 21:47 Temperature 98.4 F Pulse Rate 74 66 Respiratory Rate 20 Blood Pressure 106/58 L Pulse Oximetry 98 Oxygen Delivery Room Air 11/05/24 00:00 11/05/24 04:00 11/05/24 05:47 Temperature 98.1 F Pulse Rate 68 66 70 Respiratory Rate 20 Blood Pressure 102/70 Pulse Oximetry 97 Oxygen Delivery Intake/Output Intake/Output: Intake & Output 11/02/24 11/03/24 11/04/24 11/05/24 23:59 23:59 23:59 23:59 Intake Total 850 1060 325 Output Total 300 Balance 850 760 325 Meds/Results Medications: Active Medications Generic Name Dose Route Start Last Admin Trade Name Freq PRN Reason Stop Dose Admin Acetaminophen 500 mg 11/03/24 07:18 Acetaminophen 500 Mg Tablet PO Q6H PRN pain Calcium Carbonate 500 mg 11/03/24 09:00 11/04/24 16:44 Calcium/Vitamin D 500 Mg/5 Mcg (200 I.U.) Tablet PO 500 mg BID RADHA Administration Citalopram Hydrobromide 10 mg 11/03/24 09:00 11/04/24 09:26 Citalopram Hydrobromide 10 Mg Tablet PO 10 mg DAILY RADHA Administration Clobetasol Propionate 1 applic 11/03/24 09:00 11/04/24 16:45 Clobetasol Propionate 0.05% Cream 15 Gm TOPICAL 1 applic BID RADHA Administration Cyanocobalamin 1,000 mcg 11/03/24 09:00 11/04/24 09:26 Cyanocobalamin 1,000 Mcg Tablet PO 1,000 mcg DAILY RADHA Administration Erythromycin 1 applic 11/03/24 07:18 Erythromycin Ophth Ointment 1 Gm Tube EACH EYE DAILY PRN pain Hydroxyzine HCl 25 mg 11/03/24 09:00 11/04/24 16:44 Hydroxyzine Hcl 25 Mg Tablet PO 25 mg BID RADHA Administration Ceftriaxone Sodium 1 gm in 50 mls @ 100 mls/hr 11/03/24 08:00 11/04/24 09:49 Rocephin 1 Gm/Ns 50 Ml IVPB Infused Q24H RADHA Infusion Loratadine 10 mg 11/03/24 09:00 11/04/24 09:25 Loratadine 10 Mg Tablet PO 10 mg DAILY RADHA Administration Pantoprazole Sodium 40 mg 11/03/24 09:00 11/04/24 09:25 Pantoprazole 40 Mg Tablet PO 40 mg QAM RADHA Administration Perflutren Lipid Microsphere 0 ml 11/03/24 09:50 Perflutren Lipid Microspheres 1.5 Ml Vial Diluted To 10 Ml Total Volume IV PUSH 11/06/24 09:50 ONCE PRN adequate visualization Protocol Senna 8.6 mg 11/03/24 07:18 Sennosides 8.6 Mg Tablet PO DAILY PRN constipation Triamcinolone Acetonide 1 applic 11/03/24 09:00 11/04/24 16:45 Triamcinolone Acet 0.1% Cream 15 Gm Tube TOPICAL 1 applic TID RADHA Administration Vitamin D 1,000 units 11/03/24 09:00 11/04/24 09:26 Cholecalciferol 1,000 Units Tablet PO 1,000 units DAILY RADHA Administration Radiology Results: ITS Impressions Chest X-Ray 11/03/24 06:19 IMPRESSION: 1. No acute cardiopulmonary disease. Head CT 11/03/24 06:40 IMPRESSION: 1. Moderate nonspecific cerebral white matter disease, which likely represents chronic small vessel ischemic disease. Labs Labs: Laboratory Results - last 24 hr 11/05/24 06:08 WBC 7.2 RBC 3.84 L Hgb 11.2 L Hct 34.2 L MCV 89.1 MCH 29.2 MCHC 32.7 RDW 15.8 H Plt Count 300 MPV 9.5 Sodium 138 Potassium 3.6 Chloride 109 H Carbon Dioxide 27 Anion Gap 2 L BUN 9 Creatinine 0.70 Estim Creat Clear Calc 49 Estimated GFR > 60 Glucose 92 Calcium 8.9 Total Bilirubin 0.5 AST 22 ALT 12 Alkaline Phosphatase 82 Total Protein 7.0 Albumin 3.5
[2024-11-05] MEDS: CALCIUM/VITAMIN D 500 MG/5 MCG (200 I.U.) TABLET PO ×2 (09:52→16:46)
[2024-11-05] MEDS: CYANOCOBALAMIN 1,000 MCG TABLET 1000 MCG PO (09:52)
[2024-11-05] MEDS: hydrOXYzine HCL 25 MG TABLET PO ×2 (09:52→16:47)
[2024-11-05] MEDS: LORATADINE 10 MG TABLET PO (09:52)
[2024-11-05] MEDS: CHOLECALCIFEROL 1,000 UNITS TABLET 1000 UNITS PO (09:52)
[2024-11-05] MEDS: PANTOPRAZOLE 40 MG TABLET PO (09:52)
[2024-11-05] MEDS: CITALOPRAM HYDROBROMIDE 10 MG TABLET PO (09:52)
[2024-11-05] MEDS: TRIAMCINOLONE ACET 0.1% CREAM 15 GM TUBE 1 APPLIC TOPICAL (09:55)
[2024-11-05] MEDS: CLOBETASOL PROPIONATE 0.05% CREAM 15 GM 1 APPLIC TOPICAL ×2 (09:55→16:47)
[2024-11-05] MEDS: polyethylene glycoL 3350 17 GM POWD.PACK PO (12:51)
[2024-11-05 16:17] LABS: IFOB Positive Control Positive; Immunochemical Fecal Occult Bl Positive (N)
[2024-11-06] VITALS (9 sets, daily range): BP systolic 119–124; BP diastolic 59–68; PULSE 65–82; RESP 18–20; TEMP 36.1–36.3; O2SAT 95–96
[2024-11-06] MEDS: METOCLOPRAMIDE HCL INJ 10 MG/2 ML VIAL 5 MG IV PUSH (08:07)
[2024-11-06] MEDS: PANTOPRAZOLE 40 MG TABLET PO (08:11)
[2024-11-06] MEDS: CALCIUM/VITAMIN D 500 MG/5 MCG (200 I.U.) TABLET PO ×2 (08:11→16:42)
[2024-11-06] MEDS: CHOLECALCIFEROL 1,000 UNITS TABLET 1000 UNITS PO (08:11)
[2024-11-06] MEDS: LORATADINE 10 MG TABLET PO (08:11)
[2024-11-06] MEDS: CYANOCOBALAMIN 1,000 MCG TABLET 1000 MCG PO (08:11)
[2024-11-06] MEDS: CITALOPRAM HYDROBROMIDE 10 MG TABLET PO (08:11)
[2024-11-06] MEDS: hydrOXYzine HCL 25 MG TABLET PO ×2 (08:13→16:42)
[2024-11-06] MEDS: CLOBETASOL PROPIONATE 0.05% CREAM 15 GM 1 APPLIC TOPICAL ×2 (08:15→16:42)
--- NOTE | 2024-11-06 08:47 | PCPTNOTE ---
Per nursing, hold for now.
--- NOTE | 2024-11-06 08:49 | PCOTNOTE ---
Attempted OT evaluation, per RN pt is not doing well this AM and therapy should hold.
[2024-11-06 08:54] LABS: Glucose Point of Care 122 mg/dl (65-105)
--- NOTE | 2024-11-06 13:02 | P.PNIM_ITS ---
Progress Note: A&P Assessment and Plan (1) Syncope: Code(s): R55 - Syncope and collapse Status: Acute (2) Urinary tract infection: Code(s): N39.0 - Urinary tract infection, site not specified Status: Acute (3) Alzheimer dementia with anxiety: Code(s): G30.9 - Alzheimer's disease, unspecified; F02.84 - Dementia in other diseases classified elsewhere, unspecified severity, with anxiety Status: Chronic (4) THU (generalized anxiety disorder): Code(s): F41.1 - Generalized anxiety disorder Status: Chronic (5) Plaque psoriasis: Code(s): L40.0 - Psoriasis vulgaris Status: Chronic (6) Colonic constipation: Code(s): K59.00 - Constipation, unspecified Status: Acute (7) Intrinsic eczema: Code(s): L20.84 - Intrinsic (allergic) eczema Status: Acute Plan (1) Syncope: Code(s): R55 - Syncope and collapse Status: Acute Assessment and Plan: No further syncope. Likely secondary to current infection vs/ vasovagal. No lightheadedness. No focal neurological deficits. Will check orthostatics. Echo has normal EF w/o significant valvular concerns. Telemetry shows no significant arrhythmia (2) Urinary tract infection: Code(s): N39.0 - Urinary tract infection, site not specified Status: Acute Assessment and Plan: 11/05/24: Patient denies dysuria at this time, is currently on ceftriaxone (day 2) which will cont. Cultures are pending this am and have not resulted with speciation or sensitivities. Once available, likely able to dc home. Labs are stable with wbc count from 13k down to 8k. Afebrile. Continue Rocephin 1G IVPB daily pending Cx. UC is negative wcc is nl can dc iv rocephin (3) Alzheimer dementia with anxiety: Code(s): G30.9 - Alzheimer's disease, unspecified; F02.84 - Dementia in other diseases classified elsewhere, unspecified severity, with anxiety Status: Chronic Assessment and Plan: 11/04/24: Mildly confused but appropriate and conversational. 11/03/24: * Chronic, noted to be pleasantly confused. * Supportive care with attempt to re-orient and provide for safety. (4) Plaque psoriasis: Code(s): L40.0 - Psoriasis vulgaris Status: Chronic Assessment and Plan: : Noted region to the right wrist, cont. with kenalog cream and home regimen. . (5) THU (generalized anxiety disorder): Code(s): F41.1 - Generalized anxiety disorder Status: Chronic Assessment and Plan: Stable Continue Citalopram per home dose. 6. fobt is positive pt having some gas pains order KUB and tums order GI consult Subjective Date/time seen: 11/06/24 13:02 Interval history: Thalia denies complaints or concerns today. nurse reports pt has been feeling some abdominal discomfort and gas pains will order KUB Pt here for uti history of Alzheimers. poor historian Consider Dc home soon after GI consultation Review of Systems Review of Systems: No specific complaints Exam Narrative: GENERAL APPEARANCE: Appears to be in no acute distress. history of Alzheimers CARDIAC: Normal S1/S2. Rhythm is regular. No murmurs, rubs, or gallops. No cyanosis or pallor. Extremities are warm and well perfused. LUNGS: Clear to auscultation without rales, rhonchi, wheezing or diminished breath sounds. Respirations even and unlabored. ABDOMEN: BS positive x 4 quadrants. Soft, nondistended, nontender. No guarding or rebound. MSK: No joint tenderness/swelling, fair strength in all extremities. PERIPHERAL VASCULAR: Peripheral pulses palpable. Normal perfusion, cap refill <2 seconds. No edema. NEURO: Follows commands. No focal deficits. SKIN: [place] without lesions or eruptions on the right wrist PSYCH: Stable, no paranoia or delusional thinking. Objective Data Vital Signs Vital Signs: Vital Signs - 24 hr 11/05/24 14:00 11/05/24 16:00 11/05/24 22:00 Temperature 36.9 C 35.7 C L Pulse Rate 72 70 63 Respiratory Rate 20 18 Blood Pressure 100/70 123/68 Pulse Oximetry 98 95 11/06/24 00:00 11/06/24 04:00 11/06/24 05:52 Temperature 36.1 C L Pulse Rate 65 65 75 Respiratory Rate 18 Blood Pressure 124/59 L Pulse Oximetry 95 Intake/Output Intake/Output: Intake & Output 11/03/24 11/04/24 11/05/24 11/06/24 23:59 23:59 23:59 23:59 Intake Total 850 1060 1251 240 Output Total 300 Balance 297 844 6846 240 Meds/Results Medications: Active Medications Generic Name Dose Route Start Last Admin Trade Name Freq PRN Reason Stop Dose Admin Acetaminophen 500 mg 11/03/24 07:18 Acetaminophen 500 Mg Tablet PO Q6H PRN pain Calcium Carbonate 500 mg 11/03/24 09:00 11/06/24 08:11 Calcium/Vitamin D 500 Mg/5 Mcg (200 I.U.) Tablet PO 500 mg BID RADHA Administration Citalopram Hydrobromide 10 mg 11/03/24 09:00 11/06/24 08:11 Citalopram Hydrobromide 10 Mg Tablet PO 10 mg DAILY RADHA Administration Clobetasol Propionate 1 applic 11/03/24 09:00 11/06/24 08:15 Clobetasol Propionate 0.05% Cream 15 Gm TOPICAL 1 applic BID RADHA Administration Cyanocobalamin 1,000 mcg 11/03/24 09:00 11/06/24 08:11 Cyanocobalamin 1,000 Mcg Tablet PO 1,000 mcg DAILY RADHA Administration Erythromycin 1 applic 11/03/24 07:18 Erythromycin Ophth Ointment 1 Gm Tube EACH EYE DAILY PRN pain Hydroxyzine HCl 25 mg 11/03/24 09:00 11/06/24 08:13 Hydroxyzine Hcl 25 Mg Tablet PO 25 mg BID RADHA Administration Ceftriaxone Sodium 1 gm in 50 mls @ 100 mls/hr 11/03/24 08:00 11/06/24 08:15 Rocephin 1 Gm/Ns 50 Ml IVPB 100 mls/hr Q24H RADHA Administration Loratadine 10 mg 11/03/24 09:00 11/06/24 08:11 Loratadine 10 Mg Tablet PO 10 mg DAILY RADHA Administration Metoclopramide HCl 5 mg 11/06/24 08:00 11/06/24 08:07 Metoclopramide Hcl Inj 10 Mg/2 Ml Vial IV PUSH 5 mg PRN PRN Administration Nausea Pantoprazole Sodium 40 mg 11/03/24 09:00 11/06/24 08:11 Pantoprazole 40 Mg Tablet PO 40 mg QAM RADHA Administration Senna 8.6 mg 11/03/24 07:18 Sennosides 8.6 Mg Tablet PO DAILY PRN constipation Vitamin D 1,000 units 11/03/24 09:00 11/06/24 08:11 Cholecalciferol 1,000 Units Tablet PO 1,000 units DAILY RADHA Administration Radiology Results: ITS Impressions Chest X-Ray 11/03/24 06:19 IMPRESSION: 1. No acute cardiopulmonary disease. Head CT 11/03/24 06:40 IMPRESSION: 1. Moderate nonspecific cerebral white matter disease, which likely represents chronic small vessel ischemic disease. Labs Labs: Laboratory Results - last 24 hr 11/05/24 11/06/24 15:52 08:50 POC Capillary Glucose 122 H Stl Occult Blood (IFOB) Positive H
[2024-11-06] MEDS: SENNA/DOCUSATE SODIUM TABLET 1 TAB PO (20:53)
[2024-11-07] VITALS: PULSE 66
[2024-11-07 04:00] VITALS: PULSE 62
[2024-11-07 06:00] VITALS: BP 100/70; PULSE 62; RESP 18; TEMP 36.6; O2SAT 94
[2024-11-07 07:02] LABS: Hematocrit 36.4 % (37.0-47.0); Hemoglobin 11.7 g/dL (12.0-15.0); Mean Corpuscular HGB Conc 32.1 g/dl (32-36); Mean Corpuscular Hemoglobin 28.9 pg (26-34); Mean Corpuscular Volume 89.9 fl (80-100); Mean Platelet Volume 9.3 fl (7.4-10.4); Platelet Count Result 311 k/mm3 (150-375); Red Blood Count 4.05 M/mm3 (4.2-5.4); Red Cell Distribution Width 15.9 % (11.5-14.5); White Blood Count 6.2 K/mm3 (4.5-10.0)
[2024-11-07 07:15] LABS: Anion Gap 1 mmol/L (4-12); Blood Urea Nitrogen 11 mg/dL (7-17); Calcium 8.9 mg/dL (8.4-10.2); Carbon Dioxide 28 mmol/L (22-30); Chloride 108 mmol/L (98-107); Estimated CRCL calculation 43 ml/min; Estimated Glomerular Filt Rate > 60; Glucose 98 mg/dL (65-110); Potassium 3.5 mmol/L (3.4-5.0); Sodium 137 mmol/L (137-145)
[2024-11-07 08:00] VITALS: PULSE 65
[2024-11-07] MEDS: PANTOPRAZOLE 40 MG TABLET PO (08:40)
[2024-11-07] MEDS: CHOLECALCIFEROL 1,000 UNITS TABLET 1000 UNITS PO (08:40)
[2024-11-07] MEDS: LORATADINE 10 MG TABLET PO (08:40)
[2024-11-07] MEDS: CITALOPRAM HYDROBROMIDE 10 MG TABLET PO (08:40)
[2024-11-07] MEDS: CALCIUM/VITAMIN D 500 MG/5 MCG (200 I.U.) TABLET PO (08:40)
[2024-11-07] MEDS: CYANOCOBALAMIN 1,000 MCG TABLET 1000 MCG PO (08:40)
[2024-11-07] MEDS: hydrOXYzine HCL 25 MG TABLET PO (08:40)
[2024-11-07] MEDS: CLOBETASOL PROPIONATE 0.05% CREAM 15 GM 1 APPLIC TOPICAL (08:42)
[2024-11-07 12:00] VITALS: PULSE 71
[2024-11-07 14:00] VITALS: BP 122/64; PULSE 72; RESP 19; TEMP 36.4; O2SAT 95
--- NOTE | 2024-11-07 14:02 | PM.DS ---
DS: Admitting Diagnosis Discharge Date 11/07/24 Admitting Diagnosis Syncope DS: Discharge Diagnosis Discharge Diagnosis (1) Syncope: Code(s): R55 - Syncope and collapse Status: Acute Assessment and Plan: - Family reports previous Hx with negative work-up. - Per family, normally caused by anxiety and it occurred when family informed pt they were leaving and she got anxious. - No syncope episodes inpatient. - CT head negative for acute. - Possibly secondary to current infection vs/vasovagal vs anxiety vs other. - No lightheadedness. No focal neurological deficits. Orthostatics normal. - Echo has normal EF w/o significant valvular concerns. - Telemetry shows no significant arrhythmia. - No further w/u needed. (2) Urinary tract infection: Code(s): N39.0 - Urinary tract infection, site not specified Status: Acute Assessment and Plan: - UA consistent with UTI. - Patient unable to report symptoms due to altered mentation. - UA with mixed brent. - No further antibiotics needed. (3) Alzheimer dementia with anxiety: Code(s): G30.9 - Alzheimer's disease, unspecified; F02.84 - Dementia in other diseases classified elsewhere, unspecified severity, with anxiety Status: Chronic Assessment and Plan: - Stable inpatient. (4) THU (generalized anxiety disorder): Code(s): F41.1 - Generalized anxiety disorder Status: Chronic Assessment and Plan: - Stable inpatient. (5) Plaque psoriasis: Code(s): L40.0 - Psoriasis vulgaris Status: Chronic Assessment and Plan: - Stable inpatient. (6) Colonic constipation: Code(s): K59.00 - Constipation, unspecified Status: Acute Assessment and Plan: - Stable inpatient. - Continue stool softeners and laxatives. (7) Intrinsic eczema: Code(s): L20.84 - Intrinsic (allergic) eczema Status: Acute Assessment and Plan: - Stable inpatient. Plan Discharge to SNF DS: Summary Hospital Course Reason for hospitalization: Syncope Hospital Course: Patient was brought in to the ER from the SNF that she resides with reports of syncope. Patient has a Hx of dementia and unable to provide any Hx. Patient has a Hx of previous syncope as well per family, but always has a negative work-up. Initial work-up in the ER showed a negative CT head, no significant electrolyte abnormalities to cause symptoms, but her UA was significant for possible UTI. She was admitted for treatment of the UTI and further work-up on the syncope. Patient had a negative syncope work-up, with no episode inpatient, no lightheadedness, no neuro deficits noted, normal orthostatics, ECHO with normal EF without significant structural abnormalities, tele monitoring with no significant arrhythmia. Patient was treated on IV Ceftriaxone that was discontinued prior to discharge with urine culture growing normal brent and WBC's wnl. Patient does not appear to be undergoing an infectious process. Patient and family want to go home as the new environment might start affecting the patient with her Hx of dementia. Patient is medically stable for discharge with no acute distress symptoms noted or reported prior to discharge. Status at Discharge Functional status at discharge: uses cane/walker Overall status at discharge: patient is back to baseline Time Spent with Patient Time attestation: Total time spent providing and/or coordinating discharge services: Time spent: Greater than 30 minutes Exam Narrative: GENERAL APPEARANCE: Appears to be in no acute distress. history of Alzheimer's dementia CARDIAC: Normal S1/S2. Rhythm is regular. No murmurs. Extremities are warm and well perfused. LUNGS: Clear to auscultation without rales, rhonchi, wheezing or diminished breath sounds. Respirations even and unlabored. ABDOMEN: BS positive x 4 quadrants. Soft, nondistended, nontender. MSK: No joint tenderness/swelling, fair strength in all extremities. PERIPHERAL VASCULAR: Peripheral pulses palpable. No edema. NEURO: Follows commands. No focal neuro deficits. SKIN: Moist and [place] without lesions PSYCH: Calm and co-operative. DS: Data Data Completed and Pending Labs on day of discharge: Labs from last 24 hours 11/07/24 06:28 WBC 6.2 RBC 4.05 L Hgb 11.7 L Hct 36.4 L MCV 89.9 MCH 28.9 MCHC 32.1 RDW 15.9 H Plt Count 311 MPV 9.3 Sodium 137 Potassium 3.5 Chloride 108 H Carbon Dioxide 28 Anion Gap 1 L BUN 11 Creatinine 0.80 Estim Creat Clear Calc 43 Estimated GFR > 60 Glucose 98 Calcium 8.9 Discharge Plan Discharge Attending physician on discharge: Braeden Quinones Consulting providers: Otis Leos; Alaina Rick Discharging Clinician: Chantale Lindsay Anticipated Discharge Date/Time: 11/07/24 15:00 Patient Disposition: SNF Activity: as tolerated Diet: as tolerated Patient Language: Welsh Stand Alone Forms: General Discharge Information Discharge Medications: Continued citalopram 10 mg tablet 10 mg PO .qd acetaminophen 500 mg capsule 500 mg PO Q6H PRN (Reason: pain) Caltrate 600 plus D 600 mg-20 mcg (800 unit) tablet,chewable 1 tablet PO BID cyanocobalamin (vitamin B-12) 1,000 mcg tablet extended release 1,000 mcg PO DAILY Cosentyx UnoReady Pen 300 mg/2 mL (150 mg/mL) pen injector 150 mg subcut ONCE Rx Instructions: Once a day on the of the month q 4 weeks, sub q erythromycin 5 mg/gram (0.5 %) ointment 1 applic EACH EYE DAILY PRN (Reason: pain) loperamide [Anti-Diarrheal (loperamide)] 2 mg tablet 2 mg PO QID PRN (Reason: GERD) loratadine [Allergy Relief (loratadine)] 10 mg tablet 10 mg PO DAILY omeprazole 20 mg capsule,delayed release(DR/EC) 20 mg PO DAILY sennosides 8.6 mg tablet 8.6 mg PO DAILY PRN (Reason: constipation) triamcinolone acetonide 0.1 % cream 1 applic topical TID cholecalciferol (vitamin D3) 25 mcg (1,000 unit) capsule 25 mcg PO DAILY clobetasol 0.05 % cream 1 applic topical BID hydroxyzine HCl 25 mg tablet 25 mg PO BID Date of admission: 11/03/24 01:35 Primary Care Provider: Mandy,Enrique Felipe Admitting Provider: Batsheva Garcia V. Attending physician on admission: Amparo Burton Condition: Stable Quality If No VTE Prophylaxis Answer both mechanical and pharmacologic: Reason no mechanical VTE proph: low risk/not indicated Reason no pharmacologic proph: low risk/not indicated Hospitalist MIPS Heart Failure (Exclusion) Patient has history of Heart Transplant or Left Ventricular Assistive Device?: No IF YES, STOP HERE Heart Failure (Qualifier) Patient has current or prior documentation of LVEF less than or equal to 40%, or mod/servere depressed LVSF?: No IF NO, STOP HERE
== END 2024-11-07 15:40 ==
LOC: ANHED 11-03 01:37 → ANH3MEDSUR 11-03 06:42
PROVIDERS: Family Medicine; Hospitalist; Nurse Practitioner Family; Admitting Provider Internal Medicine; Emergency Provider Emergency Medicine; PCP Family Medicine; Visit Provider Nurse Practitioner Adult Health
DX: R55 Syncope and collapse (principal); G30.9 Alzheimer's disease, unspecified; F02.84 Dementia in other diseases classified elsewhere, unspecified severity, with anxiety; F41.1 Generalized anxiety disorder; L40.0 Psoriasis vulgaris; L20.84 Intrinsic (allergic) eczema; K59.00 Constipation, unspecified; K21.9 Gastro-esophageal reflux disease without esophagitis; E53.8 Deficiency of other specified B group vitamins; E55.9 Vitamin D deficiency, unspecified; Z87.891 Personal history of nicotine dependence; Z79.899 Other long term (current) drug therapy
CPT/HCPCS: 36415; 70450; 71045; 74018; 80048; 80053; 81001; 82274; 82948; 83605; 83735; 83880; 84145; 84484; 85025; 85027; 85610; 85730; 87086; 87637; 93005; 93306; 96365; 96375; 96376; 97161; 97165; 99285; A9270; G0378; J0696; J2765; J7030